=== PATIENT | female | born 1945 | race Caucasian/White ===

== ENCOUNTER → 2017-02-03 | Outpatient (CLI) | payer MEDICARE, OTHER ==
[~2017-02-03] MED LIST: ACTOPLUS MET 151 TA2 PO; ACTOS PO; ALLEGRA180 MG PO; AMARYL PO; ASPIRIN81 MG PO; BYETTA5 MCG/0.02 SQ; CALCIUM 600 + D1 TAB PO; COREG3.125 MG PO; IMDUR-ER60 MG PO; LEVOTHYROXINE100 MCG PO; LIPITOR40 MG PO; LISINOPRIL-HCTZ1 T14 PO; MOEXIPRIL HCTZ PO; MULTIVITAMIN1 UDCAP PO; ZOCOR80 MG PO
--- NOTE | ~2017-02-03 | BD1 ---
[facility] A Service of [facility] & [facility] RADIOLOGY TEXT RESULTS PATIENT: BETITO RUIZ LOCATION: [facility] : 43 UNIT #: [id number] AGE: [address]: Nohelia Valiente SEX: F ORDER DR: [id number] [facility] [address] [place], [place] [address] [id number] O MR#: [id number] Acc #: [id number] NAME: BETITO RUIZ : 1945 SEX: F STUDY DATE/TIME: 02/03/2017 10:50 UNIT: [facility] ROOM: STUDY DESCRIPTION: BD Dexa Bone Dens 1+ Site Attending Physician: Nohelia Valiente A.P.R.N. Referring Physician: Nohelia Valiente A.P.R.N. Ordering Physician: Nohelia Valiente A.P.R.N. Primary Care Physician: Nohelia Valiente A.P.R.N. MEDICAL IMAGING REPORT This report is preliminary unless electronic signature is present EXAM Bone densitometry INDICATIONS 71-year-old post-menopausal female. FINDINGS Bone mineral density of the lumbar spine (L1-L4) is calculated at 1.213 g/sq cm. This correlates with a T-score of 1.5 and a Z-score of 3.8. This is classified as normal bone mineralization. There is a 3.8% decrease in bone mineral density since the 2015 comparison. The bone mineral density at the left proximal femoral neck region is calculated at 0.821 g/sq cm. There is correlates with a T-score of -0.2 and a Z-score of 1.7. This is classified as normal bone mineralization. No significant change from 2015. IMPRESSION Normal bone mineralization. Dictated by... Bhavik Calvillo M.D. THIS IS AN ELECTRONICALLY VERIFIED REPORT Bhavik Calvillo M.D. at 02/04/2017 6:44 AM REGLA/fay TD: 02/03/2017 23:07 JOB #: [id number] MEDICAL IMAGING REPORT [facility] A Service of [facility] & [facility] RADIOLOGY TEXT RESULTS PATIENT: BETITO RUIZ [id number] 44 UNIT #: [id number] AGE: [address]: Nohelia Valiente SEX: F ORDER DR: Page 1 of 1 COPY
--- NOTE | ~2017-02-03 | MY29 ---
[facility] A Service of [facility] & [facility] RADIOLOGY TEXT RESULTS PATIENT: BETITO RUIZ [facility] 43 UNIT #: [id number] AGE: [address]: Nohelia Valiente SEX: F ORDER DR: [id number] [facility] [address] [place], [place] [address] [id number] O MR#: [id number] Acc #: [id number] NAME: BETITO RUIZ : 1945 SEX: F STUDY DATE/TIME: 02/03/2017 10:47 [facility] ROOM: STUDY DESCRIPTION: MY OLGA SCREENING W/ CAD BILAT Attending Physician: Nohelia Valiente A.P.R.N. Referring Physician: Nohelia Valiente A.P.R.N. Ordering Physician: Nohelia Valiente A.P.R.N. Primary Care Physician: Nohelia Valiente A.P.R.N. MEDICAL IMAGING REPORT This report is preliminary unless electronic signature is present EXAM Digital screening mammogram, 02/03/2017; [facility]. HISTORY 71-year-old woman. Personal history of ovarian cancer. Annual screen. COMPARISON Mammograms date to 04/17/2006 with most recent 01/09/2016. TECHNIQUE Digital imaging of each breast was completed utilizing screening protocol. Review includes FDA-approved CAD device. Breast parenchyma is predominantly fatty replaced bilaterally. There are calcifications with benign characteristics in each breast. This includes a small grouping of microcalcifications upper central left breast location. There is no interval occurring mass. I see no architectural disturbance. IMPRESSION Stable benign mammogram. Annual screening recommended. Patients over the age of 40 are entered into a reminder system with target due date for the next mammogram. A result letter will also be sent to the patient. BIRADS: 2 Benign findings. Dictated by... Lonnie Schultz M.D. THIS IS AN ELECTRONICALLY VERIFIED REPORT Lonnie Schultz M.D. at 02/04/2017 7:10 AM JBB/jt STS. [facility] A Service of [facility] & [facility] RADIOLOGY TEXT RESULTS PATIENT: BETITO RUIZ [facility] 43 UNIT #: [id number] AGE: [address]: Nohelia Valiente SEX: F ORDER DR: TD: 02/03/2017 19:33 JOB #: [id number] MEDICAL IMAGING REPORT Page 1 of 1 COPY
== END | disposition home or self-care (01) ==
LOC: CWCC 10:00
DX: Z13.820 Encounter for screening for osteoporosis (principal); Z12.31 Encounter for screening mammogram for malignant neoplasm of breast; Z78.0 Asymptomatic menopausal state; Z85.43 Personal history of malignant neoplasm of ovary
CPT/HCPCS: 77080; G0202